=== PATIENT | male | born 1970 | race Two or more races ===

== ENCOUNTER 2019-01-30 22:40 | Emergency (ER) | payer SELFPAY ==
[~2019-01-30] VITALS: Ht 180.3 cm; Wt 113.4 kg
[2019-01-31 00:01] LABS: Basophils # (auto) 0 uL; Basophils % (auto) 0.6 % (0.0-2.0); Eosinophils # (auto) 0.1 uL; Eosinophils % (auto) 2.1 % (0.0-7.0); Hematocrit 47.1 % (41.0-53.0); Hemoglobin 16.2 g/dL (13.5-17.5); Lymphocytes # (auto) 1.8 uL; Lymphocytes % (auto) 30.8 % (10.0-50.0); Mean Corpuscular Hemoglobin 31.5 pg (28.0-32.0); Mean Corpuscular Hgb Conc. 34.4 g/dL (32.0-36.0); Mean Corpuscular Volume 91.5 fL (80.0-100.0); Monocytes # (auto) 0.6 uL; Monocytes % (auto) 10.3 % (0.0-12.0); Neutrophils # (auto) 3.4 uL; Neutrophils % (auto) 56.2 % (37.0-80.0); Nucleated Red Blood Cells % 0.1 %; Platelet Count (auto) 253 10^3/uL (140-450); Red Blood Cells 5.15 10^6/uL (4.5-5.90); Red Cell Distribution Width 13.2 % (11.8-14.3)
[2019-01-31 00:14] LABS: INR 0.94 (0.9-1.15); Partial Thromboplastin Time 25.8 sec (23.78-33.04); Prothrombin Time 10.1 sec (9.27-12.13)
[2019-01-31 00:24] LABS: Albumin 3.7 g/dL (3.4-5.0); BUN/Creatinine Ratio 15.3; Calcium 8.7 mg/dL (8.5-10.1); Magnesium 2.4 mg/dL (1.6-2.6); Potassium 3.5 mmol/L (3.5-5.1)
[2019-01-31 00:30] LABS: Bilirubin, Total 0.8 mg/dL (0.2-1.0); Total Protein 7.9 g/dL (6.4-8.2)
[2019-01-31] MEDS ORDERED: LORazepam 0.5 MG TAB PO ONE (01:15)
[2019-01-31 01:19] VITALS: BP 157/86
== END 2019-01-31 03:03 | disposition home or self-care (01) ==
LOC: ER 22:44
DX: F10.239 Alcohol dependence with withdrawal, unspecified (principal); Y90.9 Presence of alcohol in blood, level not specified; F17.210 Nicotine dependence, cigarettes, uncomplicated; I10 Essential (primary) hypertension
CPT/HCPCS: 36415; 70450; 71046; 80053; 83735; 83880; 84484; 85025; 85610; 85730; 93005

== ENCOUNTER → 2019-07-13 | Outpatient (CLI) | payer OTHER ==
[2019-07-13 09:39] LABS: Urine WBC None Seen /hpf (0 - 3)
[2019-07-13 09:56] LABS: Basophils # (auto) 0 uL; Basophils % (auto) 0.2 % (0.0-2.0); Eosinophils # (auto) 0.1 uL; Eosinophils % (auto) 1.3 % (0.0-7.0); Hematocrit 46.9 % (41.0-53.0); Hemoglobin 16.2 g/dL (13.5-17.5); Lymphocytes # (auto) 1.7 uL; Lymphocytes % (auto) 31.9 % (10.0-50.0); Mean Corpuscular Hemoglobin 31.9 pg (28.0-32.0); Mean Corpuscular Hgb Conc. 34.4 g/dL (32.0-36.0); Mean Corpuscular Volume 92.6 fL (80.0-100.0); Monocytes # (auto) 0.4 uL; Neutrophils # (auto) 3.2 uL; Neutrophils % (auto) 59.6 % (37.0-80.0); Nucleated Red Blood Cells % 0.1 %; Platelet Count (auto) 259 10^3/uL (140-450); Red Blood Cells 5.07 10^6/uL (4.5-5.90); Red Cell Distribution Width 13.5 % (11.8-14.3); Urine Bacteria NONE SEEN /hpf (None Seen); Urine Blood Negative /uL (Negative); Urine Specific Gravity 1.012 (1.001-1.035); White Blood Cell 5.4 10^3/uL (4.4-10.8)
[2019-07-13 11:02] LABS: Potassium 4.6 mmol/L (3.5-5.1)
[2019-07-13 11:11] LABS: BUN/Creatinine Ratio 20.7; Magnesium 2.3 mg/dL (1.6-2.6); Uric Acid 6.6 mg/dL (3.5-7.2)
[2019-07-13 11:13] LABS: Bilirubin, Total 0.8 mg/dL (0.2-1.0); Phosphorus 3.9 mg/dL (2.5-4.90); Total Protein 7.8 g/dL (6.4-8.2)
== END | disposition home or self-care (01) ==
LOC: LAB 09:22
PROVIDERS: ATTEND Internal Medicine Nephrology
DX: F41.9 Anxiety disorder, unspecified (principal); I10 Essential (primary) hypertension; M10.9 Gout, unspecified; F90.9 Attention-deficit hyperactivity disorder, unspecified type; Z86.711 Personal history of pulmonary embolism
CPT/HCPCS: 36415; 80053; 80061; 81001; 83036; 83735; 84100; 84443; 84550; 85025; 85379

== ENCOUNTER 2020-12-12 00:12 | Emergency (ER) | payer MEDICAID, OTHER ==
[~2020-12-12] VITALS: Ht 180.3 cm; Wt 116.6 kg
[2020-12-12 00:51] VITALS: BP 140/82
[2020-12-12 01:48] LABS: Basophils # (auto) 0 10 ^3/uL (0-0.2); Basophils % (auto) 0.7 % (0.0-2.0); Eosinophils # (auto) 0.2 10 ^3/uL (0-0.8); Eosinophils % (auto) 2.7 % (0.0-7.0); Hematocrit 43.3 % (41.0-53.0); Hemoglobin 15.4 g/dL (13.5-17.5); Lymphocytes # (auto) 2.1 10 ^3/uL (0.4-5.4); Lymphocytes % (auto) 34.5 % (10.0-50.0); Mean Corpuscular Hemoglobin 32.3 pg (28.0-32.0); Mean Corpuscular Hgb Conc. 35.6 g/dL (32.0-36.0); Mean Corpuscular Volume 90.7 fL (80.0-100.0); Monocytes # (auto) 0.6 10 ^3/uL (0-1.3); Monocytes % (auto) 9.8 % (0.0-12.0); Neutrophils # (auto) 3.1 10 ^3/uL (1.6-8.6); Neutrophils % (auto) 52.3 % (37.0-80.0); Nucleated Red Blood Cells % 0.1 %; Platelet Count (auto) 276 10^3/uL (140-450); Red Blood Cells 4.77 10^6/uL (4.5-5.90); Red Cell Distribution Width 12.9 % (11.8-14.3); White Blood Cell 5.9 10^3/uL (4.4-10.8)
[2020-12-12 02:00] LABS: Urine WBC None Seen /hpf (0 - 3)
[2020-12-12 02:06] LABS: Albumin 3.7 g/dL (3.4-5.0); Amylase 86 U/L (25-115); Anion Gap 12 (5-15); BUN/Creatinine Ratio 15.6; Blood Urea Nitrogen 10 mg/dL (7-18); Calcium 8.3 mg/dL (8.5-10.1); Carbon Dioxide 19 mmol/L (21-32); Chloride 103 mmol/L (98-107); GFR African American 171 mL/min; GFR Non-African American 141 mL/min; Glucose 115 mg/dL (74-106); Lipase 215 U/L (73-393); Potassium 3.8 mmol/L (3.5-5.1); Sodium 134 mmol/L (136-145)
[2020-12-12 02:10] LABS: Urine Bacteria FEW /hpf (None Seen); Urine Blood Negative /uL (Negative); Urine Specific Gravity 1.002 (1.001-1.035)
[2020-12-12 02:11] LABS: Alanine Aminotransferase 168 U/L (16-61); Alkaline Phosphatase 69 U/L (45-117); Aspartate Aminotransferase 102 U/L (15-37); Bilirubin, Total 0.3 mg/dL (0.2-1.0); Total Protein 8.1 g/dL (6.4-8.2)
[2020-12-12 02:20] LABS: INR 0.97 (0.9-1.15); Partial Thromboplastin Time 25.5 sec (23.0-31.2)
== END 2020-12-12 02:22 | disposition home or self-care (01) ==
LOC: ER 00:13
DX: K29.00 Acute gastritis without bleeding (principal); D17.1 Benign lipomatous neoplasm of skin and subcutaneous tissue of trunk; I10 Essential (primary) hypertension; F17.210 Nicotine dependence, cigarettes, uncomplicated
CPT/HCPCS: 36415; 74176; 80053; 81001; 82150; 83690; 84484; 85025; 85610; 85730; 93005

== ENCOUNTER 2021-05-25 18:30 | Emergency (ER) | payer MEDICAID ==
[~2021-05-25] VITALS: Ht 180.3 cm; Wt 113.4 kg
[2021-05-25 19:17] VITALS: BP 147/84
== END 2021-05-25 19:25 | disposition home or self-care (01) ==
LOC: ER 18:32
DX: U07.1 COVID-19 (principal); I10 Essential (primary) hypertension; F17.210 Nicotine dependence, cigarettes, uncomplicated

== ENCOUNTER 2021-05-28 14:57 | Inpatient (IN) | payer MEDICAID ==
[~2021-05-28] VITALS: Ht 180.3 cm; Wt 122.9 kg
[2021-05-28 16:11] LABS: Basophils # (auto) 0 10 ^3/uL (0-0.2); Basophils % (auto) 0.7 % (0.0-2.0); Eosinophils # (auto) 0 10 ^3/uL (0-0.8); Hematocrit 46.4 % (41.0-53.0); Hemoglobin 16.2 g/dL (13.5-17.5); Lymphocytes # (auto) 1.5 10 ^3/uL (0.4-5.4); Lymphocytes % (auto) 41.8 % (10.0-50.0); Mean Corpuscular Hemoglobin 31.3 pg (28.0-32.0); Mean Corpuscular Hgb Conc. 34.9 g/dL (32.0-36.0); Mean Corpuscular Volume 89.6 fL (80.0-100.0); Monocytes # (auto) 0.4 10 ^3/uL (0-1.3); Monocytes % (auto) 12.6 % (0.0-12.0); Neutrophils # (auto) 1.6 10 ^3/uL (1.6-8.6); Neutrophils % (auto) 44.9 % (37.0-80.0); Nucleated Red Blood Cells % 0.3 %; Red Blood Cells 5.18 10^6/uL (4.5-5.90); Red Cell Distribution Width 13.1 % (11.8-14.3); White Blood Cell 3.5 10^3/uL (4.4-10.8)
[2021-05-28 16:23] LABS: BUN/Creatinine Ratio 22.2; Calcium 8.1 mg/dL (8.5-10.1); Potassium 3.8 mmol/L (3.5-5.1)
[2021-05-28 16:25] LABS: Bilirubin, Total 0.6 mg/dL (0.2-1.0); Total Protein 7.6 g/dL (6.4-8.2)
[2021-05-28] MEDS ORDERED: cefTRIAXone 1GM/50ML D5W 50 ML IV ONE (18:00)
[2021-05-28] MEDS ORDERED: SODIUM CHLORIDE 0.9% 1,000 ML IV ONE (18:00)
[2021-05-28] MEDS ORDERED: DOXYCYCLINE 100 MG TAB/CAP PO ONE (18:00)
[2021-05-28] MEDS ORDERED: ONDANSETRON HCL 4 MG/2 ML VIAL IV ONE (18:00)
[2021-05-28] MEDS ORDERED: ACETAMINOPHEN/CODEINE#3 (300/30mg) TAB PO ONE (18:00)
[2021-05-28 18:56] LABS: Lipase 288 U/L (73-393)
[2021-05-28] MEDS ORDERED: ACETAMINOPHEN 325 MG TAB PO PRN (21:15)
[2021-05-28] MEDS ORDERED: DEXTROSE (50%) 50ML SYRG IV PRN (21:15)
[2021-05-28] MEDS ORDERED: NITROGLYCERIN 0.4 MG SL TAB SL PRN (21:15)
[2021-05-28] MEDS ORDERED: ONDANSETRON HCL 4 MG/2 ML VIAL IV PRN (21:15)
[2021-05-28] MEDS ORDERED: MORPHINE SULFATE INJECTION 2 MG/ML SYRG IV PRN (21:15)
[2021-05-28] MEDS: ASCORBIC ACID 500 MG TAB PO SCH (21:59)
[2021-05-28] MEDS ORDERED: TEMAZEPAM 15 MG CAP PO PRN (22:00)
[2021-05-28] MEDS ORDERED: InsuLIN REG 1unit/0.01ml Soln (100units/ml) SC SCH (22:00)
[2021-05-28] MEDS: DexAMETHasone SOD PHOS 10MG/1ML VIAL INJ IV SCH (22:11)
[2021-05-28] MEDS: ACCU-CHEK COMFORT CURVE STRIP VI SCH (22:12)
[2021-05-29] MEDS: HYDROcodone-ACET 5/325MG TAB PO PRN ×3 (00:36→23:00)
[2021-05-29 02:59] VITALS: BP 125/77
[2021-05-29] MEDS ORDERED: AZIT250T9 PO (03:28)
[2021-05-29 05:00] VITALS: BP 145/81
[2021-05-29 05:56] LABS: Basophils # (auto) 0 10 ^3/uL (0-0.2); Eosinophils # (auto) 0 10 ^3/uL (0-0.8); Hematocrit 43.1 % (41.0-53.0); Hemoglobin 15.6 g/dL (13.5-17.5); Lymphocytes # (auto) 0.8 10 ^3/uL (0.4-5.4); Lymphocytes % (auto) 34.2 % (10.0-50.0); Mean Corpuscular Hemoglobin 32.2 pg (28.0-32.0); Mean Corpuscular Hgb Conc. 36.1 g/dL (32.0-36.0); Mean Corpuscular Volume 89.3 fL (80.0-100.0); Monocytes # (auto) 0.2 10 ^3/uL (0-1.3); Monocytes % (auto) 7.6 % (0.0-12.0); Neutrophils # (auto) 1.4 10 ^3/uL (1.6-8.6); Neutrophils % (auto) 57.2 % (37.0-80.0); Nucleated Red Blood Cells % 0.1 %; Red Blood Cells 4.82 10^6/uL (4.5-5.90); Red Cell Distribution Width 13.1 % (11.8-14.3); White Blood Cell 2.5 10^3/uL (4.4-10.8)
[2021-05-29 06:11] LABS: Potassium 3.9 mmol/L (3.5-5.1)
[2021-05-29 06:20] LABS: Albumin 2.8 g/dL (3.4-5.0); BUN/Creatinine Ratio 22.8; Bilirubin, Total 0.5 mg/dL (0.2-1.0); Total Protein 7.4 g/dL (6.4-8.2)
[2021-05-29] MEDS: ACCU-CHEK COMFORT CURVE STRIP VI SCH ×4 (06:29→22:00)
[2021-05-29] MEDS: InsuLIN REG 1unit/0.01ml Soln (100units/ml) SC SCH ×4 (06:50→22:48)
[2021-05-29] MEDS: MORPHINE SULFATE INJECTION 2 MG/ML SYRG IV PRN ×3 (06:50→20:34)
[2021-05-29] MEDS ORDERED: LISI40TA11 PO (07:01)
[2021-05-29 09:00] VITALS: BP 116/74
[2021-05-29] MEDS: PANTOPRAZOLE 40 MG/10 ML VIAL INJ IV SCH (09:44)
[2021-05-29] MEDS: AZITHROMYCIN 500MG/ 250ML 250 ML IV SCH (09:44)
[2021-05-29] MEDS: ZINC SULFATE 220mg CAP or TAB PO SCH (09:44)
[2021-05-29] MEDS: DexAMETHasone SOD PHOS 10MG/1ML VIAL INJ IV SCH (09:44)
[2021-05-29] MEDS: MULTIPLE VITAMIN TAB PO SCH (09:45)
[2021-05-29] MEDS: ASCORBIC ACID 500 MG TAB PO SCH ×2 (09:45→22:59)
[2021-05-29] MEDS ORDERED: ENOXAPARIN SOD 40 MG/0.4 ML SYRINGE SC SCH (10:00)
[2021-05-29] MEDS ORDERED: REMDESIVIR PER PHARMACY 0 ML IV SCH (10:45)
[2021-05-29 13:00] VITALS: BP 120/80
[2021-05-29] MEDS ORDERED: IOHEXOL 350 MG/ML 100ML IJ ONE (14:46)
[2021-05-29] MEDS ORDERED: REMDESIVIR 200 MG in NS 210ml LOADING DOSE ADULT IV ONE (15:00)
[2021-05-29 16:43] VITALS: BP 126/84
[2021-05-29] MEDS ORDERED: DEXTROSE (50%) 50ML SYRG IV PRN (17:30)
[2021-05-29 22:00] VITALS: BP 121/71
[2021-05-29] MEDS: ENOXAPARIN SOD 40 MG/0.4 ML SYRINGE SC SCH (23:00)
[2021-05-30 05:00] VITALS: BP 117/63
[2021-05-30] MEDS: MORPHINE SULFATE INJECTION 2 MG/ML SYRG IV PRN (05:39)
[2021-05-30] MEDS: ALBUTEROL SULF 2.5 MG/0.5ML(0.5%) NEB SOLN NEB PRN ×2 (06:25→18:42)
[2021-05-30] MEDS ORDERED: PROMETHAZINE-DM 5 ML ORAL SYRUP PO PRN (06:30)
[2021-05-30] MEDS: InsuLIN REG 1unit/0.01ml Soln (100units/ml) SC SCH ×4 (06:35→21:26)
[2021-05-30] MEDS: ACCU-CHEK COMFORT CURVE STRIP VI SCH ×4 (06:42→21:35)
[2021-05-30] MEDS: DexAMETHasone SOD PHOS 10MG/1ML VIAL INJ IV SCH (08:36)
[2021-05-30] MEDS: AZITHROMYCIN 500MG/ 250ML 250 ML IV SCH (08:36)
[2021-05-30] MEDS: PANTOPRAZOLE 40 MG/10 ML VIAL INJ IV SCH (08:36)
[2021-05-30] MEDS: ASCORBIC ACID 500 MG TAB PO SCH ×2 (08:37→21:36)
[2021-05-30] MEDS: ZINC SULFATE 220mg CAP or TAB PO SCH (08:37)
[2021-05-30] MEDS: MULTIPLE VITAMIN TAB PO SCH (08:37)
[2021-05-30] MEDS: ENOXAPARIN SOD 40 MG/0.4 ML SYRINGE SC SCH ×2 (08:37→21:35)
[2021-05-30] MEDS: DOCUSATE SOD 100 MG CAP PO PRN (08:44)
[2021-05-30] MEDS: HYDROcodone-ACET 5/325MG TAB PO PRN ×4 (08:45→21:52)
[2021-05-30 09:00] VITALS: BP 126/76
[2021-05-30 09:47] LABS: Albumin 2.8 g/dL (3.4-5.0); Calcium 8.1 mg/dL (8.5-10.1); Potassium 3.6 mmol/L (3.5-5.1)
[2021-05-30 09:51] LABS: Bilirubin, Total 0.6 mg/dL (0.2-1.0); Total Protein 7.1 g/dL (6.4-8.2)
[2021-05-30 12:59] VITALS: BP 129/75
[2021-05-30] MEDS: REMDESIVIR 100mg 100 MG in SODIUM CHL 0.9% 230 ML IV SCH (15:07)
[2021-05-30 16:53] VITALS: BP 116/81
[2021-05-30] MEDS: Glucerna Carbsteady SHAKE Stawberry 8oz PO SCH (17:15)
[2021-05-30] MEDS: INSULIN LANTUS (GLARGINE) 1 /0.01ml (100units/ml) SC SCH (21:28)
[2021-05-30 22:00] VITALS: BP 140/81
[2021-05-31] MEDS: MORPHINE SULFATE INJECTION 2 MG/ML SYRG IV PRN ×5 (04:55→22:27)
[2021-05-31 05:00] VITALS: BP 107/78
[2021-05-31] MEDS: InsuLIN REG 1unit/0.01ml Soln (100units/ml) SC SCH ×4 (06:35→22:25)
[2021-05-31] MEDS: ACCU-CHEK COMFORT CURVE STRIP VI SCH ×4 (06:38→22:26)
[2021-05-31] MEDS: guaiFENesin-DM 100/10mg/5ml SYR PO PRN (06:58)
[2021-05-31] MEDS: Glucerna Carbsteady SHAKE Stawberry 8oz PO SCH ×2 (08:00→17:15)
[2021-05-31 08:44] LABS: Albumin 2.5 g/dL (3.4-5.0); Potassium 3.7 mmol/L (3.5-5.1)
[2021-05-31 08:47] LABS: BUN/Creatinine Ratio 33.3; Bilirubin, Total 0.5 mg/dL (0.2-1.0)
[2021-05-31] MEDS: DexAMETHasone SOD PHOS 10MG/1ML VIAL INJ IV SCH (08:47)
[2021-05-31] MEDS: AZITHROMYCIN 500MG/ 250ML 250 ML IV SCH (08:48)
[2021-05-31] MEDS: MULTIPLE VITAMIN TAB PO SCH (08:48)
[2021-05-31] MEDS: PANTOPRAZOLE 40 MG/10 ML VIAL INJ IV SCH (08:48)
[2021-05-31] MEDS: ZINC SULFATE 220mg CAP or TAB PO SCH (08:48)
[2021-05-31] MEDS: ASCORBIC ACID 500 MG TAB PO SCH ×2 (08:48→22:26)
[2021-05-31] MEDS: ENOXAPARIN SOD 40 MG/0.4 ML SYRINGE SC SCH ×2 (08:49→22:26)
[2021-05-31 09:00] VITALS: BP 132/84
[2021-05-31] MEDS: INSULIN LANTUS (GLARGINE) 1 /0.01ml (100units/ml) SC SCH ×2 (09:54→22:26)
[2021-05-31] MEDS: ALBUTEROL SULF 2.5 MG/0.5ML(0.5%) NEB SOLN NEB PRN ×2 (11:47→18:32)
[2021-05-31 13:00] VITALS: BP 117/53
[2021-05-31] MEDS: HYDROcodone-ACET 5/325MG TAB PO PRN (13:26)
[2021-05-31] MEDS: REMDESIVIR 100mg 100 MG in SODIUM CHL 0.9% 230 ML IV SCH (16:00)
[2021-05-31 17:00] VITALS: BP 130/71
[2021-05-31 19:09] VITALS: BP 130/70
[2021-05-31 22:00] VITALS: BP 135/74
[2021-06-01] MEDS: MORPHINE SULFATE INJECTION 2 MG/ML SYRG IV PRN ×3 (04:02→16:31)
[2021-06-01] MEDS: guaiFENesin-DM 100/10mg/5ml SYR PO PRN ×3 (04:24→20:44)
[2021-06-01] MEDS: ALBUTEROL SULF 2.5 MG/0.5ML(0.5%) NEB SOLN NEB PRN ×2 (04:41→06:06)
[2021-06-01 05:00] VITALS: BP 133/85
[2021-06-01] MEDS: InsuLIN REG 1unit/0.01ml Soln (100units/ml) SC SCH ×4 (06:50→22:11)
[2021-06-01] MEDS: ACCU-CHEK COMFORT CURVE STRIP VI SCH ×4 (06:50→22:06)
[2021-06-01 07:49] LABS: Potassium 3.5 mmol/L (3.5-5.1)
[2021-06-01 07:58] LABS: Albumin 2.5 g/dL (3.4-5.0); BUN/Creatinine Ratio 32.7; Bilirubin, Total 0.5 mg/dL (0.2-1.0); Total Protein 6.9 g/dL (6.4-8.2)
[2021-06-01] MEDS: Glucerna Carbsteady SHAKE Stawberry 8oz PO SCH ×2 (08:00→16:44)
[2021-06-01 09:00] VITALS: BP 123/76
[2021-06-01] MEDS: PANTOPRAZOLE 40 MG/10 ML VIAL INJ IV SCH (09:03)
[2021-06-01] MEDS: DexAMETHasone SOD PHOS 10MG/1ML VIAL INJ IV SCH (09:03)
[2021-06-01] MEDS: AZITHROMYCIN 500MG/ 250ML 250 ML IV SCH (09:03)
[2021-06-01] MEDS: ASCORBIC ACID 500 MG TAB PO SCH ×2 (09:04→22:07)
[2021-06-01] MEDS: MULTIPLE VITAMIN TAB PO SCH (09:04)
[2021-06-01] MEDS: ENOXAPARIN SOD 40 MG/0.4 ML SYRINGE SC SCH ×2 (09:04→22:07)
[2021-06-01] MEDS: ZINC SULFATE 220mg CAP or TAB PO SCH (09:05)
[2021-06-01] MEDS: INSULIN LANTUS (GLARGINE) 1 /0.01ml (100units/ml) SC SCH ×2 (10:22→22:11)
[2021-06-01] MEDS: HYDROcodone-ACET 5/325MG TAB PO PRN ×2 (11:55→20:53)
[2021-06-01 13:00] VITALS: BP 124/83
[2021-06-01] MEDS: REMDESIVIR 100mg 100 MG in SODIUM CHL 0.9% 230 ML IV SCH (15:00)
[2021-06-01 17:00] VITALS: BP 146/83
[2021-06-01 20:00] VITALS: BP 133/84
[2021-06-01 22:00] VITALS: BP 133/84
[2021-06-02] MEDS: MORPHINE SULFATE INJECTION 2 MG/ML SYRG IV PRN (02:12)
[2021-06-02 05:00] VITALS: BP 130/81
[2021-06-02 06:19] LABS: Albumin 2.5 g/dL (3.4-5.0); Calcium 8.1 mg/dL (8.5-10.1); Potassium 3.5 mmol/L (3.5-5.1)
[2021-06-02 06:30] LABS: BUN/Creatinine Ratio 35.1; Bilirubin, Total 0.5 mg/dL (0.2-1.0); CRP High Sensitivity 1.57 mg/dL (< 0.3); Total Protein 6.7 g/dL (6.4-8.2)
[2021-06-02] MEDS: HYDROcodone-ACET 5/325MG TAB PO PRN ×3 (06:33→16:28)
[2021-06-02] MEDS: guaiFENesin-DM 100/10mg/5ml SYR PO PRN (06:33)
[2021-06-02] MEDS: ACCU-CHEK COMFORT CURVE STRIP VI SCH ×3 (06:34→17:23)
[2021-06-02] MEDS: InsuLIN REG 1unit/0.01ml Soln (100units/ml) SC SCH ×3 (06:38→18:02)
[2021-06-02] MEDS: ALBUTEROL SULF 2.5 MG/0.5ML(0.5%) NEB SOLN NEB PRN (07:20)
[2021-06-02 09:00] VITALS: BP 125/87
[2021-06-02 09:50] LABS: Basophils # (auto) 0 10 ^3/uL (0-0.2); Basophils % (auto) 0.4 % (0.0-2.0); Eosinophils # (auto) 0 10 ^3/uL (0-0.8); Eosinophils % (auto) 0.5 % (0.0-7.0); Hematocrit 41.5 % (41.0-53.0); Hemoglobin 14.6 g/dL (13.5-17.5); Lymphocytes # (auto) 1.6 10 ^3/uL (0.4-5.4); Lymphocytes % (auto) 19.1 % (10.0-50.0); Mean Corpuscular Hemoglobin 31.3 pg (28.0-32.0); Mean Corpuscular Hgb Conc. 35.2 g/dL (32.0-36.0); Monocytes # (auto) 0.6 10 ^3/uL (0-1.3); Monocytes % (auto) 7.7 % (0.0-12.0); Neutrophils # (auto) 6.1 10 ^3/uL (1.6-8.6); Neutrophils % (auto) 72.3 % (37.0-80.0); Nucleated Red Blood Cells % 0.1 %; Red Blood Cells 4.66 10^6/uL (4.5-5.90); Red Cell Distribution Width 12.9 % (11.8-14.3); White Blood Cell 8.4 10^3/uL (4.4-10.8)
[2021-06-02 10:12] LABS: Albumin 2.5 g/dL (3.4-5.0); Potassium 3.2 mmol/L (3.5-5.1)
[2021-06-02 10:20] LABS: BUN/Creatinine Ratio 28.3; Bilirubin, Total 0.6 mg/dL (0.2-1.0); CRP High Sensitivity 1.56 mg/dL (< 0.3); Total Protein 6.8 g/dL (6.4-8.2)
[2021-06-02] MEDS: ENOXAPARIN SOD 40 MG/0.4 ML SYRINGE SC SCH (10:30)
[2021-06-02] MEDS: DexAMETHasone SOD PHOS 10MG/1ML VIAL INJ IV SCH (10:30)
[2021-06-02] MEDS: Glucerna Carbsteady SHAKE Stawberry 8oz PO SCH ×2 (10:30→18:03)
[2021-06-02] MEDS: ZINC SULFATE 220mg CAP or TAB PO SCH (10:31)
[2021-06-02] MEDS: AZITHROMYCIN 500MG/ 250ML 250 ML IV SCH (10:31)
[2021-06-02] MEDS: PANTOPRAZOLE 40 MG/10 ML VIAL INJ IV SCH (10:31)
[2021-06-02] MEDS: ASCORBIC ACID 500 MG TAB PO SCH (10:31)
[2021-06-02] MEDS: MULTIPLE VITAMIN TAB PO SCH (10:32)
[2021-06-02] MEDS: INSULIN LANTUS (GLARGINE) 1 /0.01ml (100units/ml) SC SCH (10:46)
[2021-06-02 13:00] VITALS: BP 110/68
[2021-06-02] MEDS: REMDESIVIR 100mg 100 MG in SODIUM CHL 0.9% 230 ML IV SCH (16:04)
[2021-06-02 17:00] VITALS: BP 132/83
[2021-06-02 17:45] VITALS: BP 131/85
[2021-06-03] MEDS ORDERED: AZITHROMYCIN 500MG/ 250ML 250 ML IV SCH (10:00)
== END 2021-06-02 18:50 | disposition home health service (06) | DRG 137 ==
LOC: ER 14:57 → TELE 21:12 → TELE-EAST 23:42
PROVIDERS: ADMIT Nurse Practitioner; ATTEND Nurse Practitioner
PROC: XW033E5 Introduction of Remdesivir Anti-infective into Peripheral Vein, Percutaneous Approach, New Technology Group 5 (ICD-10-PCS; principal; 2021-05-29)
DX: U07.1 COVID-19 (principal); J96.01 Acute respiratory failure with hypoxia; J12.82 Pneumonia due to coronavirus disease 2019; Z93.0 Tracheostomy status; E11.9 Type 2 diabetes mellitus without complications; E86.0 Dehydration; F17.210 Nicotine dependence, cigarettes, uncomplicated; F41.9 Anxiety disorder, unspecified; R94.5 Abnormal results of liver function studies; I10 Essential (primary) hypertension; E66.9 Obesity, unspecified; J98.11 Atelectasis; Z68.34 Body mass index [BMI] 34.0-34.9, adult; Z79.899 Other long term (current) drug therapy; Z83.3 Family history of diabetes mellitus
CPT/HCPCS: 36415; 70450; 71045; 71275; 80053; 82306; 82607; 82962; 83036; 83690; 84484; 85025; 85379; 86141; 87040; 87426; 93970; 94640; 96365; 96372; 96375; C9113; G0378; J0696; J1100; J1815; J2405

== ENCOUNTER 2022-10-17 00:53 | Emergency (ER) | payer MEDICAID ==
[~2022-10-17] VITALS: Ht 180.3 cm; Wt 118.4 kg
[~2022-10-17 00:53] MED LIST: AZIT250T9 PO; LISI40TA11 PO
[2022-10-17] MEDS ORDERED: HYDROcodone-ACET 10/325MG TAB PO ONE (01:45)
[2022-10-17] MEDS ORDERED: ONDANSETRON ODT 4 MG TAB PO ONE (01:45)
[2022-10-17] MEDS ORDERED: TETANUS-DIPTH-ACEL PERTUSSIS 0.5ML SYR Tdap IM ONE (02:15)
[2022-10-17] MEDS ORDERED: MORPHINE SULFATE 4 MG/ML SYR/VIAL IM ONE (03:00)
[2022-10-17] MEDS ORDERED: HYDR-4902 PO (03:32)
[2022-10-17] MEDS ORDERED: ONDA-144 PO (03:32)
[2022-10-17] MEDS ORDERED: AMOX-277 PO (03:32)
[2022-10-17 03:40] VITALS: BP 120/65
== END 2022-10-17 03:40 | disposition home or self-care (01) ==
LOC: ER 00:53
DX: S01.511A Laceration without foreign body of lip, initial encounter (principal); W54.0XXA Bitten by dog, initial encounter; Y93.89 Activity, other specified; Y92.89 Other specified places as the place of occurrence of the external cause; Y99.8 Other external cause status
CPT/HCPCS: 12013; 90471; 90715; 96372; 99284; J2270; Q0162

== ENCOUNTER 2022-10-21 09:54 | Emergency (ER) | payer MEDICAID ==
[~2022-10-21 09:54] MED LIST changes: +AMOX-277 PO; +HYDR-4902 PO; +ONDA-144 PO
[2022-10-21 11:06] VITALS: BP 146/87
[2022-10-21] MEDS ORDERED: HYDROcodone-ACET 10/325MG TAB PO ONE (11:45)
[2022-10-21] MEDS ORDERED: TRAM50TA2 PO (11:51)
== END 2022-10-21 12:21 | disposition home or self-care (01) ==
LOC: ER 09:54
DX: S01.511D Laceration without foreign body of lip, subsequent encounter (principal); I10 Essential (primary) hypertension; E11.9 Type 2 diabetes mellitus without complications; F17.210 Nicotine dependence, cigarettes, uncomplicated; Z79.2 Long term (current) use of antibiotics; Z79.899 Other long term (current) drug therapy; W54.0XXD Bitten by dog, subsequent encounter

== ENCOUNTER 2023-03-23 20:50 | Emergency (ER) | payer MEDICAID ==
[~2023-03-23] VITALS: Ht 180.3 cm; Wt 114.7 kg
[2023-03-24] MEDS ORDERED: HYDROcodone-ACET 5/325MG TAB PO ONE
[2023-03-24] MEDS ORDERED: ONDANSETRON ODT 4 MG TAB PO ONE
[2023-03-24] MEDS ORDERED: ACE3T PO (00:03)
[2023-03-24 05:00] VITALS: BP 163/86
== END 2023-03-24 01:00 | disposition home or self-care (01) ==
LOC: ER 20:50
DX: M66.0 Rupture of popliteal cyst (principal); E11.9 Type 2 diabetes mellitus without complications; I10 Essential (primary) hypertension; F17.210 Nicotine dependence, cigarettes, uncomplicated; Z79.899 Other long term (current) drug therapy
CPT/HCPCS: 93971; 99284; Q0162